=== PATIENT | female | born 1955 | race Caucasian/White ===

== ENCOUNTER 2017-02-18 11:19 | Emergency (ER) | payer BC ==
[2017-02-18 12:23] VITALS: BP 125/68
--- NOTE | 2017-02-18 12:52 | UC ---
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 - History Of Current Complaint Chief Complaint: UCGU Stated Complaint: URINARY Time Seen by Provider: 02/18/17 12:50 Hx Obtained From: Patient ?: No Onset/Duration: Sudden Onset, Lasting Days, Still Present Timing: Constant Severity Initially: Mild Severity Currently: Mild Pain Intensity: 4 - with urination Pain Scale Used: 0-10 Numeric Character: Burning Aggravating Factor(s): Urination Alleviating Factor(s): Nothing Associated Signs And Symptoms: Positive: Negative - Allergies/Home Medications Allergies/Adverse Reactions: Allergies Allergy/AdvReac Type Severity Reaction Status Date / Time Sulfa Antibiotics Allergy Rash Verified 02/18/17 12:25 Aspirin AdvReac See Comment Verified 02/18/17 12:25 Ibuprofen AdvReac See Comment Verified 02/18/17 12:25 Home Medications: Home Medications Cyanocobalamin [B12] 1,000 mcg PO DAILY 02/18/17 [History Confirmed 02/18/17] DULoxetine DR CAP* [Cymbalta CAP*] 60 mg PO DAILY 02/18/17 [History Confirmed ] Levothyroxine TAB* [Synthroid 100 MCG TAB*] 100 mcg PO DAILY 02/18/17 [History Confirmed 02/18/17] Magnesium 250 mg PO DAILY 02/18/17 [History Confirmed 02/18/17] Multiple Vitamins W/ Iron [Multi Vitamin with Iron] 1 tab PO DAILY 02/18/17 [ History Confirmed 02/18/17] Multiple Vitamins W/ Minerals [Multi Vitamin and Mineral] 1 tab PO DAILY [History Confirmed 02/18/17] PMH/Surg Hx/FS Hx/Imm Hx Previously Healthy: No Endocrine History Of: Reports: Thyroid Disease - HYPO Psychological History Of: Reports: Anxiety, Depression - Surgical History Surgical History: Yes Surgery Procedure, Year, and Place: hysterectomy, gastric bypass, cholecystectomy - Family History Known Family History: Positive: None Family History: no cardiovascular issues in family lineage - Social History Occupation: Retired Lives: With Family Alcohol Use: Occasionally Substance Use Type: None Smoking Status (MU): Never Smoked Tobacco Review of Systems Constitutional: Negative Skin: Negative Eyes: Negative ENT: Negative Respiratory: Negative Cardiovascular: Negative Gastrointestinal: Negative Genitourinary: Dysuria, Frequency, Urgency Motor: Negative Neurovascular: Negative Musculoskeletal: Negative Neurological: Negative Psychological: Negative All Other Systems Reviewed And Are Negative: Yes Physical Exam Triage Information Reviewed: Yes Appearance: Well-Appearing, No Pain Distress, Obese Vital Signs: Initial Vital Signs Temp 98.4 F 02/18/17 12:16 Pulse 62 02/18/17 12:16 Resp 16 02/18/17 12:16 BP 125/68 02/18/17 12:16 Pulse Ox 98 02/18/17 12:16 Vital Signs Reviewed: Yes Eye Exam: Normal Eyes: Positive: Conjunctiva Clear ENT Exam: Normal ENT: Positive: Normal ENT inspection, Hearing grossly normal. Negative: Nasal congestion, Nasal drainage, Trismus, Muffled/hoarse voice Neck exam: Normal Neck: Positive: Supple, Nontender, No Lymphadenopathy Respiratory Exam: Normal Respiratory: Positive: Chest non-tender, Lungs clear, Normal breath sounds, No respiratory distress, No accessory muscle use Cardiovascular Exam: Normal Cardiovascular: Positive: RRR, No Murmur, Pulses Normal, Brisk Capillary Refill Abdominal Exam: Normal Abdomen Description: Positive: Nontender, No Organomegaly, Soft Bowel Sounds: Positive: Present Musculoskeletal Exam: Normal Musculoskeletal: Positive: Strength Intact, ROM Intact, No Edema Neurological Exam: Normal Neurological: Positive: Alert, Muscle Tone Normal Psychological Exam: Normal Psychological: Positive: Decreased Age Appropriate Behavior Diagnostics - Laboratory Diagnostic Studies Completed/Ordered: ua--sg 1.025, +1 Ketones, trace leuks Complaint Female Dx - Course Course Of Treatment: increase fluids, macrobid, culture urine follow with pcp - Differential Dx/Diagnosis Differential Diagnosis/HQI/PQRI: Renal Colic, Urinary Tract Infection, Other - dehydration, dysuria Provider Diagnoses: dehydration, UTI Discharge - Discharge Plan Condition: Stable Disposition: HOME Prescriptions: Nitrofurantoin Monohyd Macro [Macrobid] 100 mg PO BID #20 cap Patient Education Materials: Dehydration (ED), Urinary Tract Infection in Women (ED) Referrals: Raymond SCHAEFER,Pamela Roberts [Medical Doctor] - 2 Weeks Missy Norris MD [Primary Care Provider] - If Needed
== END 2017-02-18 13:13 | disposition home or self-care (01) ==
LOC: UCCORT 11:19
DX: N39.0 Urinary tract infection, site not specified (principal); E86.0 Dehydration; E03.9 Hypothyroidism, unspecified; F41.9 Anxiety disorder, unspecified; F32.9 Major depressive disorder, single episode, unspecified; Z98.84 Bariatric surgery status; E66.9 Obesity, unspecified; Z88.6 Allergy status to analgesic agent; Z88.1 Allergy status to other antibiotic agents
CPT/HCPCS: 81003; 87086; 99211; G0463